=== PATIENT | female | born 1975 | race African-American/Black ===

== ENCOUNTER 2019-03-13 17:20 | Outpatient (CLI) | payer OTHER | END 2019-03-13 22:56 | disposition home or self-care (01) | LOC: RAD 17:20 | DX: R06.02 Shortness of breath (principal) ==

== ENCOUNTER 2019-03-20 13:06 | Outpatient (CLI) | payer OTHER | END 2019-03-20 20:39 | disposition home or self-care (01) | LOC: MAMMO 13:06 | DX: Z12.31 Encounter for screening mammogram for malignant neoplasm of breast (principal) ==